=== PATIENT | female | born 1985 | race African-American/Black ===

== ENCOUNTER 2023-04-30 10:28 | Outpatient (CLI) | payer OTHER | END 2023-04-30 10:29 | disposition home or self-care (01) | LOC: CSHLAB 10:28 | PROVIDERS: ATTEND Obstetrics & Gynecology | DX: Z01.812 Encounter for preprocedural laboratory examination (principal); D25.9 Leiomyoma of uterus, unspecified | CPT/HCPCS: 84703; 85027; 86850; 86900; 86901 ==

== ENCOUNTER 2023-05-02 05:52 | Day surgery (SDC) | payer OTHER ==
[2023-04-30 11:18] VITALS: BMI 39.9
[2023-04-30 11:45] LABS: Hematocrit 29.7 % (34.9-44.5); Hemoglobin 8.9 g/dL (12.0-15.5); Mean Corpuscular Hemoglobin 21.5 pg (27.0-33.0); Mean Corpuscular Volume 71.9 fl (81.6-98.3); Mean Platelet Volume 9.3 fl (7.4-10.4); Platelet Count 486 10x3/uL (150-450); RBC Distribution Width 20.1 % (11.5-14.5); Red Blood Cell (RBC) Count 4.13 10x6/uL (3.90-5.03); White Blood Cell (WBC) Count 6.5 10x3/uL (3.5-10.5)
[2023-04-30 12:39] LABS: BHCG - Serum Negative (NEGATIVE); Pregs Control Background? CLEAR/WHITE (CLR/WHITE); Pregs Control Bar Appear? YES (CONTROL BAR)
[2023-05-02] MEDS ORDERED: Gabapentin 300 MG CAP ONE (06:11)
[2023-05-02] MEDS ORDERED: Famotidine/PF 20 mg/2ml Vial ONE (06:11)
[2023-05-02] MEDS ORDERED: CeleCOXIB 100 MG CAP ONE (06:12)
[2023-05-02] MEDS ORDERED: EPINEPHrine 1 MG/ML VIAL ONE (06:20)
[2023-05-02] MEDS ORDERED: Bupivacaine PF 0.5% 30 ML VIAL ONE (06:21)
[2023-05-02] MEDS ORDERED: PROPOFOL 20 ML ONE (06:46)
[2023-05-02] MEDS ORDERED: fentaNYL 50 mcg/mL 1 mL Vial ONE (06:46)
[2023-05-02] MEDS ORDERED: Rocuronium Bromide 10 MG/ML (10ML VIAL) ONE (06:47)
[2023-05-02] MEDS ORDERED: Dexamethasone 4 mg/ml Vial ONE (06:47)
[2023-05-02] MEDS ORDERED: Ondansetron PF 4 MG/2 ML Vial ONE (06:47)
[2023-05-02] MEDS ORDERED: Lidocaine 1% PF 5 ML VIAL ONE (06:47)
[2023-05-02] MEDS ORDERED: CEFAZOLIN 2 GM VIAL ONE (07:21)
[2023-05-02] MEDS ORDERED: Promethazine HCl 25 MG, Admixture Fee 1 EACH in Sodium Chloride 0.9% 50 ML IVPB SCH (07:30)
[2023-05-02] MEDS ORDERED: Fentanyl 250 MCG/5 ML VIAL ONE (08:10)
[2023-05-02] MEDS ORDERED: Glycopyrrolate 0.2 MG/ML 5 ML SYRINGE ONE (09:08)
[2023-05-02] MEDS ORDERED: HYDROcodone/Acetaminophen 5/325 mg Tablet ONE (10:25)
== END 2023-05-02 12:05 | disposition home or self-care (01) ==
LOC: CSHSDC 05:52
PROVIDERS: ATTEND Obstetrics & Gynecology
PROC: 0UT94ZZ Resection of Uterus, Percutaneous Endoscopic Approach (ICD-10-PCS; principal; 2023-05-02)
PROC: 0UB74ZZ Excision of Bilateral Fallopian Tubes, Percutaneous Endoscopic Approach (ICD-10-PCS; principal; 2023-05-02)
DX: D25.9 Leiomyoma of uterus, unspecified (principal); N80.03 Adenomyosis of the uterus; N92.0 Excessive and frequent menstruation with regular cycle; N94.6 Dysmenorrhea, unspecified; N80.00 Endometriosis of the uterus, unspecified; R10.2 Pelvic and perineal pain; E66.9 Obesity, unspecified; Z68.39 Body mass index [BMI] 39.0-39.9, adult; Z90.49 Acquired absence of other specified parts of digestive tract; Z88.0 Allergy status to penicillin
CPT/HCPCS: 84703; 85027; 86850; 86900; 86901; 88307; J0171; J1100; J2405; J2550; J2704; J3010; S0020; S0028

== ENCOUNTER 2023-11-21 21:53 | Emergency (ER) | payer OTHER | END 2023-11-21 23:48 | disposition home or self-care (01) | LOC: CSHERS 21:53 | DX: N83.202 Unspecified ovarian cyst, left side (principal); I10 Essential (primary) hypertension; E11.9 Type 2 diabetes mellitus without complications; Z79.84 Long term (current) use of oral hypoglycemic drugs | CPT/HCPCS: 76856 ==